=== PATIENT | female | born 1975 | race Caucasian/White ===

== ENCOUNTER 2016-10-22 14:09 | Emergency (ER) | payer OTHER ==
[~2016-10-22] VITALS: Ht 167.6 cm; Wt 74.4 kg
--- NOTE | 2016-10-22 16:15 | ED GI/GU/ABDOMINAL COMPLAINT ---
History of Present Illness General Chief Complaint: Abdominal Pain/Flank Pain Stated Complaint: abd pain Source: patient Exam Limitations: no limitations Vital Signs & Intake/Output Vital Signs & Intake/Output Vital Signs Date Time Temp Pulse Resp B/P Pulse O2 O2 Flow FiO2 Ox Delivery Rate 10/22 1820 98.2 90 18 118/71 98 Room Air 10/22 1625 97.6 102 18 121/84 98 Room Air 10/22 1600 98 Room Air 10/22 1510 98.6 120 18 121/84 99 Room Air Allergies Coded Allergies: Sulfa (Sulfonamide Antibiotics) (Intermediate, HIVES 10/22/16) morphine (Intermediate, HIVES 10/22/16) Uncoded Allergies: Med Allergies NONE Reconcile Medications Estrogenic Subst Conj (Premarin) 0.625 MG TABLET 1 TAB PO DAILY HORMONES ( Reported) Hydromorphone HCl (Dilaudid) 2 MG TABLET 1 TAB PO BIDP PRN PAIN Methylprednisolone. (Medrol) 4 MG TAB.DS.PK 1 DP PO AD COLITIS 6 on day 1 then reduce by one tablet daily until gone Triage Note: C/O LLQ ABDOMINAL PAIN SINCE LAST PM, WITH NAUSEA, BLOODY DIARRHEA. JUST FINISHED TRIAL OF REMICADE IV FOR ULCERATIVE COLITIS ON 10/18. Triage Nurses Notes Reviewed? yes ? n Is pt currently ? No Onset: Gradual Duration: worse persistent since (2 days) Timing: recent history Quality/Severity: cramping Severity Numbers: 6 Radiation: no radiation Activities at Onset: none Prior Abdominal Problems: similar symptoms Past Sexual History: Unobtainable at this time No Modifying Factors: none HPI: Patient is a 40-year-old female presenting to the emergency department with chief complaint of worsening diarrhea, left lower quadrant abdominal pain over the past 2 days. History of colitis. Feels like a flareup. She reports she is has not had a flare up in the past year to half to 2 years. She reports intermittent blood in her stool. Positive nausea but no vomiting. She just finished a trial of Remicade. Last infusion was a few days ago. She just moved to the area as her mother is in the area and she needs a new GI doctor to follow -up with. Denies any fevers or chills. No recent antibiotic use. (COURTNEY QUEZADA,YUSUF) Past History Travel History Traveled to [place] past 21 day No Medical History Any Pertinent Medical History? see below for history Gastrointestinal: ulcerative colitis Musculoskeletal: rheumatoid arthritis History of CDIFF: No Isolation History: Standard Surgical History Surgical History: non-contributory Psychosocial History What is your primary language Bangladeshi Tobacco Use: Quit >30 days ago ETOH Use: denies use Family History Hx Contributory? No (YUSUF PARADA) Review of Systems Review of Systems Constitutional: Reports: no symptoms. Comments Review of systems: See HPI, All other systems negative. Constitutional, no chills fever or weight loss HEENT: No visual changes no sore throat no congestion Cardiovascular: No chest pain ,palpitation , orthopnea or ankle swelling Skin, no jaundice no rashes Respiratory: No dyspnea cough sputum or hemoptysis GI: no vomiting : No dysuria No hematuria Muscle skeletal: no back pain, no neck pain, Neurologic: No numbness no confusion no baez Psych: Positive stress Heme/endocrine: No bruising no bleeding no polyuria or polydipsia Immunology: No splenectomy or history of AIDS (YUSUF PARADA) Physical Exam Physical Exam General Appearance: well developed/nourished, no apparent distress, alert, awake , comfortable Gastrointestinal: normal bowel sounds, soft, guarding, tenderness Comments: Well-developed well-nourished person in no acute distress HEENT: Pupils equally round and reactive to light and accommodation. Nose is atraumatic. Neck: Normal inspection Back: Nontender, no CVA tenderness. Full range of motion Cardiovascular: Regular rate and rhythms no murmurs rubs or gallops, normal JVP Respiratory: Chest nontender. No respiratory distress.breath sounds clear to auscultation bilaterally Abdomen: Soft, tender to palpation in the left lower quadrant with mild guarding , no rebound tenderness, nondistended, no appreciable organomegaly. Normal bowel sounds. No ascites Rectal: Patient refused Extremity: No edema Neuro: Alert oriented x3 Skin: No appreciable rash on exposed skin, skin is warm and dry. Psych: Mood and affect is normal, memory and judgment is normal. Core Measures ACS in differential dx? No Severe Sepsis Present: No Septic Shock Present: No (YUSUF PARADA) Progress Differential Diagnosis: irritable bowel syndrome, ulcerative colitis, C. difficile, diverticulitis, dehydration, electrolyte abnormality Plan of Care: Orders Procedure Date/time Status Add-on Test (ER Only) 01/27 1653 Active HUMAN BETA HCG SCREEN 10/22 1640 Complete Add-on Test (ER Only) 10/22 1612 Active WESTERGREN SED RATE 10/22 1602 Complete C-REACTIVE PROTEIN 10/22 1602 Complete COMPREHENSIVE METABOLIC PANEL 10/22 1602 Complete LACTIC ACID 10/22 1601 Complete COMPREHENSIVE METABOLIC PANEL 10/22 1601 Complete CBC WITHOUT DIFFERENTIAL 10/22 1601 Complete Laboratory Tests 10/22/16 1901: Lactic Acid Cancelled 10/22/16 1640: Anion Gap 10, Estimated GFR > 60, BUN/Creatinine Ratio 18.6, Glucose 91, Lactic Acid 2.2 H, Calcium 9.0, Total Bilirubin 0.4, AST 19, ALT 31, Alkaline Phosphatase 93, C-Reactive Prot, Quant < 0.5, Total Protein 7.0, Albumin 4.2, Globulin 2.8, Albumin/Globulin Ratio 1.5, Total Beta HCG NEGATIVE 10/22/16 1602: CBC w Diff NO MAN DIFF REQ, RBC 4.94, MCV 82.5, MCH 27.2, RDW 18.0 H, MPV 8.4, Gran % 73.4, Lymphocytes % 17.1 L, Monocytes % 8.1, Eosinophils % 1.0, Basophils % 0.4, Absolute Granulocytes 8.4 H, Absolute Lymphocytes 2.0, Absolute Monocytes 0.9 H, Absolute Eosinophils 0.1, Absolute Basophils 0, PUBS MCHC 33.0, ESR Westergren 23 H Initial ED EKG: none Comments: Patient medicated with Solu-Medrol, Dilaudid and fluids. She has tenderness in the left lower quadrant. Refused rectal exam. She also refused CT scan. She was informed of all lab results. She'll follow up with GI. Given Dr. Mcdonald' s contact information. Started on steroids and Dilaudid for the weekend. She was educated on signs and symptoms to return. (COURTNEY QUEZADA,YUSUF) Departure Departure Time of Disposition: 2012 Disposition: HOME OR SELF CARE Condition: Stable Clinical Impression Primary Impression: Abdominal pain Qualifiers: Abdominal location: generalized Qualified Code: R10.84 - Generalized abdominal pain Referrals: PATIENT HAS NO PRIMARY CARE DR (PCP/Family) PAUL CHAVEZ,SUMMER Timmons Additional Instructions: Follow-up with GI on Tuesday call to make an appointment. Take Dilaudid as prescribed for pain. Take steroids as prescribed as well. Return if he develop any worsening pain fevers or concerns. Departure Forms: Customer Survey D/C INS-APPENDICITIS EXCLUSION General Discharge Information Prescriptions: Current Visit Scripts Methylprednisolone. (Medrol) 1 DP PO AD #1 DP 6 on day 1 then reduce by one tablet daily until gone Hydromorphone HCl (Dilaudid) 1 TAB PO BIDP PRN PAIN #10 TAB (YUSUF PARADA) PA/BURLESQUE DANCER Co-Sign Statement Statement: ED Attending supervision documentation- [] I saw and evaluated the patient. I have also reviewed all the pertinent lab results and diagnostic results. I agree with the findings and the plan of care as documented in the PA's/BURLESQUE DANCER's documentation. [X] I have reviewed the ED Record and agree with the PA's/BURLESQUE DANCER's documentation. [] Additions or exceptions (if any) to the PAs/BURLESQUE DANCER's note and plan are summarized below: [] (HEMA KAISER DO
[2016-10-22 16:16] LABS: ABSOLUTE BASOPHIL COUNT 0 /CUMM (0.0-0.2); ABSOLUTE EOSINOPHIL COUNT 0.1 /CUMM (0.0-0.7); ABSOLUTE GRANULOCYTE CT 8.4 /CUMM (1.4-6.5); ABSOLUTE MONOCYTE COUNT 0.9 /CUMM (0.10-0.60); BASOPHIL % 0.4 % (0.0-2.0); GRANULOCYTE % 73.4 % (42.2-75.2); HEMATOCRIT 40.7 % (37-47); MEAN CORPUSCULAR HGB 27.2 PG (27.0-31.0); MEAN CORPUSCULAR VOLUME 82.5 FL (81.0-99.0); MEAN PLATELET VOLUME 8.4 FL (7.4-10.4); PLATELET COUNT 361 /CUMM (130-400); RED BLOOD CELL CT 4.94 /CUMM (4.20-5.40); WHITE BLOOD CELL COUNT 11.5 /CUMM (4.8-10.8)
[2016-10-22 18:20] VITALS: BP 118/71
[2016-10-22] MEDS ORDERED: PREMARIN0.625 M1 PO (18:20)
[2016-10-22] MEDS ORDERED: DILAUDID2 M1 PO (20:17)
[2016-10-22] MEDS ORDERED: MEDROL4 M2 PO (20:17)
== END 2016-10-22 20:32 ==
LOC: ERH 14:09
PROVIDERS: Emergency Medicine
DX: R10.32 Left lower quadrant pain (principal); R19.7 Diarrhea, unspecified
CPT/HCPCS: 96361; 96374; 96375; 96376; J2405

== ENCOUNTER 2017-03-29 14:51 | Emergency (ER) | payer SELFPAY ==
[~2017-03-29] VITALS: Ht 167.6 cm; Wt 74.4 kg
[~2017-03-29 14:51] MED LIST: DILAUDID2 M1 PO; MEDROL4 M2 PO; PREMARIN0.625 M1 PO
[2017-03-29 14:56] VITALS: BP 116/76
--- NOTE | 2017-03-29 15:08 | ED GI/GU/ABDOMINAL COMPLAINT ---
History of Present Illness General Chief Complaint: Abdominal Pain/Flank Pain Stated Complaint: ABD PAIN Source: patient, old records Exam Limitations: no limitations Vital Signs & Intake/Output Vital Signs & Intake/Output Vital Signs Date Time Temp Pulse Resp B/P B/P Pulse O2 O2 Flow FiO2 Mean Ox Delivery Rate 03/29 1740 90 16 98 Room Air 03/29 1456 97.0 111 20 116/76 98 Room Air ED Intake and Output 03/30 0000 03/29 1200 Intake Total 1000 Output Total Balance 1000 Intake, IV 1000 Patient 164 lb Weight Weight Reported by Patient Measurement Method Allergies Coded Allergies: Sulfa (Sulfonamide Antibiotics) (Intermediate, HIVES 10/22/16) morphine (Intermediate, HIVES 10/22/16) Reconcile Medications Estrogenic Subst Conj (Premarin) 0.625 MG TABLET 1 TAB PO DAILY HORMONES ( Reported) Hydromorphone HCl (Dilaudid) 2 MG TABLET 1 TAB PO BIDP PRN PAIN Methylprednisolone. (Medrol) 4 MG TAB.DS.PK 1 DP PO AD COLITIS 6 on day 1 then reduce by one tablet daily until gone Metronidazole (Flagyl) 500 MG TABLET 1 TAB PO TID CDIFF Oxycodone HCl/Acetaminophen (Percocet 5-325 MG Tablet) 5 MG-325 MG TABLET 1 TAB PO BID PRN PAIN Triage Note: PT TO ED C/O ABD PAIN,NAUSEA,DIARRHEA WITH BLOOD IN IT. H/O COLITIS, JUST FINISHED TRIAL DOSE OF REMICADE. DENIES VOMITING. STATES IT FEELS LIKE A COLITIS FLARE UP. Triage Nurses Notes Reviewed? yes LMP (ages 10-50): unknown ? N Is pt currently ? No Onset: Abrupt Duration: minute(s): (1), day(s):, constant, continues in ED, getting worse Timing: recent history Quality/Severity: cramping, moderate, sharpness Severity Numbers: 8 Location: left lower quadrant Radiation: no radiation Activities at Onset: none Prior Abdominal Problems: similar symptoms Sexually Active: Yes Last Time You Were Sexual: less than 2 months ago No Modifying Factors: none Modifying Factors: Worsens With: movement, palpation. Associated Symptoms: abdominal pain, diarrhea, nausea/vomiting HPI: 41-year-old female with past medical history of rheumatoid arthritis and ulcerative colitis presents complaining of abdominal pain, nausea, vomiting and bloody diarrhea. Patient reports symptoms started yesterday and gradually been worsening. Pain is located in the left lower quadrant of the abdomen and does not radiate. She reports pain as cramping pain that is intermittently sharp. She rates pain as a 8 out of 10 at does not radiate. Patient states that she feels as though this pain is similar to previous also of colitis as she has had in the past. Patient is currently not taking any medication for ulcerative colitis. Recently finished a trial of Remicade 2 or 3 weeks ago. Patient additionally reports having been diagnosed with C. difficile in the past. No recent antibiotic use, sick contacts recently travel, fevers, back pain, urinary symptoms, vaginal discharge. She is not taking any medicine for the pain. No other associated symptoms. Patient has surgical history of hysterectomy. (ADI GAN PA-C) Past History Travel History Traveled to [place] past 21 day No Medical History Any Pertinent Medical History? see below for history Gastrointestinal: ulcerative colitis Musculoskeletal: rheumatoid arthritis History of CDIFF: No Surgical History Surgical History: non-contributory Psychosocial History What is your primary language Albanian Tobacco Use: Quit >30 days ago ETOH Use: denies use Illicit Drug Use: denies illicit drug use Family History Hx Contributory? Yes (ADI GAN PA-C) Review of Systems Review of Systems Constitutional: Reports: no symptoms. EENTM: Reports: no symptoms. Respiratory: Reports: no symptoms. Cardiovascular: Reports: no symptoms. GI: Reports: see HPI, abdominal pain, diarrhea, nausea, bloody stool, vomiting. Genitourinary: Reports: no symptoms. Musculoskeletal: Reports: no symptoms. Skin: Reports: no symptoms. Neurological/Psychological: Reports: no symptoms. Hematologic/Endocrine: Reports: no symptoms. Immunologic/Allergic: Reports: no symptoms. All Other Systems: Reviewed and Negative (ADI GAN PA-C) Physical Exam Physical Exam General Appearance: well developed/nourished, alert, awake, anxious, moderate distress Head: atraumatic, normal appearance Eyes: Bilateral: normal appearance, PERRL, EOMI, normal inspection. Ears, Nose, Throat, Mouth: hearing grossly normal, moist mucous membrane, Tympanic normal Neck: normal inspection, supple, full range of motion, normal alignment Respiratory: normal breath sounds, chest non-tender, no respiratory distress, lungs clear Cardiovascular: regular rate/rhythm, normal peripheral pulses Peripheral Pulses: 2+ radial (R), 2+ radial (L), 2+ dorsalis pedis (R), 2+ dorsalis pedis (L) Gastrointestinal: normal bowel sounds, soft, no organomegaly, tenderness (llq) Rectal: pt refused Back: normal inspection, normal range of motion, no vertebral tenderness Extremities: normal range of motion, no ligament instability Neurologic/Psych: no motor/sensory deficits, awake, alert, oriented x 3, normal gait, normal mood/affect Skin: intact, normal color, warm/dry Core Measures ACS in differential dx? No Severe Sepsis Present: No Septic Shock Present: No (ELVIA PA-Edgardo,ADI) Progress Differential Diagnosis: appendicitis, bowel obstruction, colon cancer, diverticulitis, ectopic , endometritis, ischemic bowel, inflamm bowel dis, kidney stone, ovarian cyst, ovarian torsion, pancreatitis, PID/cervicitis, perforated viscous, SBO, UTI/pyelo Plan of Care: Orders Procedure Date/time Status CULTURE,STOOL 03/29 1553 Active C.DIFFICILE 03/29 1553 Active LIPASE 03/29 1521 Complete C-REACTIVE PROTEIN 03/29 1521 Complete COMPREHENSIVE METABOLIC PANEL 03/29 1521 Complete CBC WITHOUT DIFFERENTIAL 03/29 1521 Complete Laboratory Tests 03/29/17 1542: Anion Gap 10, Estimated GFR > 60, BUN/Creatinine Ratio 23.3, Glucose 95, Calcium 9.4, Total Bilirubin 0.3, AST 27, ALT 38, Alkaline Phosphatase 96, C-Reactive Prot, Quant 0.7, Total Protein 7.0, Albumin 4.3, Globulin 2.7, Albumin/Globulin Ratio 1.6, Lipase 52, CBC w Diff NO MAN DIFF REQ, RBC 4.39, MCV 81.9, MCH 26.5 L, RDW 16.8 H, MPV 8.0, Gran % 66.9, Lymphocytes % 20.3 L, Monocytes % 7.9, Eosinophils % 4.3, Basophils % 0.6, Absolute Granulocytes 3.9, Absolute Lymphocytes 1.2, Absolute Monocytes 0.5, Absolute Eosinophils 0.3, Absolute Basophils 0, PUBS MCHC 32.4 L 03/29/17 1521: Urine Color Cancelled, Urine Clarity Cancelled, Urine pH Cancelled, Ur Specific [place] Cancelled, Urine Protein Cancelled, Urine Ketones Cancelled, Urine Nitrite Cancelled, Urine Bilirubin Cancelled, Urine Urobilinogen Cancelled, Ur Leukocyte Esterase Cancelled, Ur Microscopic Cancelled, Urine Hemoglobin Cancelled, Urine Glucose Cancelled Microbiology 03/29 1623 STOOL: Clostridium difficile Toxin A & B - RECD 03/29 162 STOOL: Stool Culture - RECD 3:30 PM Patient seen and evaluated. Patient currently appears to be in significant pain holding the left lower quadrant of her abdomen. She'll be given a liter of normal saline along with IV Zofran and IV Dilaudid. She will have a CT scan of her abdomen and pelvis along with basic blood work, urine culture, c diff, and urinalysis. We'll follow up on results patient will continue to monitor. 4:15 PM: Patient reports that when she gave a stool sample she felt as though her stool smells like C. difficile. Additionally patient reports that her pain is discerned to come back after receiving 1 mg of IV Dilaudid. We'll give her another 1 mg IV. 5:45 PM: Patient is currently refusing CT scan and wants to leave. She feels that this is a C. difficile infection not related to anything else. Discussed with patient about possible risks of not having a CT scan and compliant with the workup including risk of perforation and abscess diverticulitis toxic megacolon and other acute abdomen. Patient understands the risks. AMA form signed. Patient will be discharged home with Flagyl to use for treatment of possible C. difficile infection. She also be given a small amount of Percocet use for pain. She'll be referred to Dr. Mcdonald in GI. Discussed all results of today's visit with patient. She is nontoxic. Discharge and agrees with the plan. Case discussed with Dr. Wheat he agrees with the plan. (ELVIA WHALEN,ADI) Initial ED EKG: none (ELVIA WHALEN,ADI) Departure Departure Disposition: LEFT AGAINST MEDICAL ADVICE Condition: Stable Clinical Impression Primary Impression: Abdominal pain Qualifiers: Abdominal location: left lower quadrant Qualified Code: R10.32 - Left lower quadrant pain Referrals: ROBBIE CHAVEZ,TERRELL Joya PATIENT HAS NO PRIMARY CARE DR (PCP/Family) Additional Instructions: Rest and plenty fluids. Take Flagyl as directed for the full course and take a probiotic to replace help the bacteria. Percocet can use as needed for severe pain only this may cause drowsiness. Make a follow-up on it with a GI doctor as soon as possible. Return to the emergency department with worsening pain, fevers, or any other concerns. You should make a follow-up with your primary care doctors to review results of today's visit. Please go over all results of today's visit with your primary care doctor. Contact your primary care doctor to let them know you were here in the emergency room. There may be nonspecific findings which may not be related to your visit today here in the emergency room but may require further evaluation and chronic monitoring by your primary care doctor. If you had a laceration today the chance of foreign body always remains. You should follow-up with your primary care doctor for recheck in 3-5 days for a wound check. If you had an x-ray done there is a chance that a fracture could have been missed on initial read and you should follow-up with your primary care doctor for repeat x-rays if symptoms persist. If your blood pressure was elevated here in the emergency room please have rechecked by her primary care doctor within the next 48 hours by your primary care doctor. If you were prescribed a narcotic here in the emergency room or any type of controlled substances you're not allowed to drive while taking this medication or operate any type of heavy machinery. Narcotics can make you feel lightheaded dizziness nausea and can cause constipation. You may need to diamond picker a stool softener. Thank you for choosing [facility] emergency room. Please return to the emergency room immediately if you have any other concerns worsening of symptoms. Departure Forms: Customer Survey General Discharge Information Prescriptions: Current Visit Scripts Metronidazole (Flagyl) 1 TAB PO TID #42 TAB Oxycodone HCl/Acetaminophen (Percocet 5-325 MG Tablet) 1 TAB PO BID PRN PAIN #6 TAB (ADI GAN PA-C) PA/METHOD CONSULTANT Co-Sign Statement Statement: ED Attending supervision documentation- [] I saw and evaluated the patient. I have also reviewed all the pertinent lab results and diagnostic results. I agree with the findings and the plan of care as documented in the PA's/METHOD CONSULTANT's documentation. [X] I have reviewed the ED Record and agree with the PA's/METHOD CONSULTANT's documentation. [] Additions or exceptions (if any) to the PAs/METHOD CONSULTANT's note and plan are summarized below: [] (MARCUS CHAVEZ,BALTAZAR Nieves)
[2017-03-29 15:53] LABS: ABSOLUTE BASOPHIL COUNT 0 /CUMM (0.0-0.2); ABSOLUTE EOSINOPHIL COUNT 0.3 /CUMM (0.0-0.7); ABSOLUTE GRANULOCYTE CT 3.9 /CUMM (1.4-6.5); ABSOLUTE LYMPH COUNT 1.2 /CUMM (1.2-3.4); ABSOLUTE MONOCYTE COUNT 0.5 /CUMM (0.10-0.60); BASOPHIL % 0.6 % (0.0-2.0); EOSINOPHIL % 4.3 % (0-5); GRANULOCYTE % 66.9 % (42.2-75.2); HEMATOCRIT 35.9 % (37-47); MEAN CORPUSCULAR HGB 26.5 PG (27.0-31.0); MEAN CORPUSCULAR HGB CONC 32.4 G/DL (33.0-37.0); MEAN CORPUSCULAR VOLUME 81.9 FL (81.0-99.0); PLATELET COUNT 315 /CUMM (130-400); RBC DISTRIBUTION WIDTH 16.8 % (11.5-14.5); RED BLOOD CELL CT 4.39 /CUMM (4.20-5.40); WHITE BLOOD CELL COUNT 5.9 /CUMM (4.8-10.8)
[2017-03-29] MEDS ORDERED: FLAGYL500 MG PO (17:46)
[2017-03-29] MEDS ORDERED: PERCOCET 5-3251 EACH PO (17:46)
== END 2017-03-29 17:55 | disposition left against medical advice (07) ==
LOC: ERH 14:51
PROVIDERS: Physician Assistant Medical
DX: R10.32 Left lower quadrant pain (principal)
CPT/HCPCS: 81025; 87045; 96374; 96375; 96376; J2405

== ENCOUNTER 2017-12-20 13:45 | Emergency (ER) | payer SELFPAY ==
[~2017-12-20] VITALS: Ht 167.6 cm; Wt 74.8 kg
[~2017-12-20 13:45] MED LIST changes: +FLAGYL500 MG PO; +PERCOCET 5-3251 EACH PO; +ZOFRAN4 M2 PO
[2017-12-20 16:39] LABS: ABSOLUTE BASOPHIL COUNT 0 /CUMM (0.0-0.2); ABSOLUTE EOSINOPHIL COUNT 0.1 /CUMM (0.0-0.7); ABSOLUTE GRANULOCYTE CT 3.9 /CUMM (1.4-6.5); ABSOLUTE LYMPH COUNT 1.9 /CUMM (1.2-3.4); ABSOLUTE MONOCYTE COUNT 0.6 /CUMM (0.10-0.60); BASOPHIL % 0.7 % (0.0-2.0); EOSINOPHIL % 1.5 % (0-5); GRANULOCYTE % 59.7 % (42.2-75.2); HEMATOCRIT 34.2 % (37-47); MEAN CORPUSCULAR HGB 25.3 PG (27.0-31.0); MEAN CORPUSCULAR HGB CONC 31.8 G/DL (33.0-37.0); MEAN CORPUSCULAR VOLUME 79.4 FL (81.0-99.0); MEAN PLATELET VOLUME 8.1 FL (7.4-10.4); PLATELET COUNT 437 /CUMM (130-400); RBC DISTRIBUTION WIDTH 15.9 % (11.5-14.5); RED BLOOD CELL CT 4.31 /CUMM (4.20-5.40); WHITE BLOOD CELL COUNT 6.5 /CUMM (4.8-10.8)
--- NOTE | 2017-12-20 17:30 | ED GI/GU/ABDOMINAL COMPLAINT ---
History of Present Illness General Chief Complaint: Nausea, Vomiting, Diarrhea Stated Complaint: PT IS HAVING ABDOMINAL PAIN,D Source: patient Exam Limitations: no limitations Vital Signs & Intake/Output Vital Signs & Intake/Output Vital Signs Date Time Temp Pulse Resp B/P B/P Pulse O2 O2 Flow FiO2 Mean Ox Delivery Rate 12/20 1921 97.0 83 16 109/70 100 Room Air ED Intake and Output 12/21 0000 12/20 1200 Intake Total Output Total Balance Number 1 Bowel Movements Patient 165 lb Weight Weight Reported by Patient Measurement Method Allergies Coded Allergies: Sulfa (Sulfonamide Antibiotics) (Intermediate, HIVES 10/22/16) morphine (Intermediate, HIVES 10/22/16) Reconcile Medications Estrogenic Subst Conj (Premarin) 0.625 MG TABLET 1 TAB PO DAILY HORMONES ( Reported) Hydrocodone/Acetaminophen (Avoca 5-325 Tablet) 5 MG-325 MG TABLET 1 TAB PO Q4- 6 PRN PRN PAIN Hydromorphone HCl (Dilaudid) 2 MG TABLET 1 TAB PO BIDP PRN PAIN Methylprednisolone. (Medrol) 4 MG TAB.DS.PK 1 DP PO AD COLITIS 6 on day 1 then reduce by one tablet daily until gone Metronidazole (Flagyl) 500 MG TABLET 1 TAB PO TID CDIFF Ondansetron (Zofran Odt) 4 MG TAB.RAPDIS 1 TAB SL TID PRN NAUSEA Ondansetron HCl (Zofran) 4 MG TABLET 1 TAB PO Q6-8P PRN NAUSEA Oxycodone HCl/Acetaminophen (Percocet 5-325 MG Tablet) 5 MG-325 MG TABLET 1 TAB PO BID PRN PAIN Oxycodone HCl/Acetaminophen (Percocet 5-325 MG Tablet) 5 MG-325 MG TABLET 1 TAB PO BID PRN PAIN Vancomycin HCl (Vancocin HCl) 125 MG CAPSULE 1 CAP PO Q6 C-DIFF Triage Note: PT TO ED WIT C/O ABD PAIN AND DIARRHEA WITH SOME BLOOD IN IT " IT HAS THAT C-DIFF SMELL TO IT, I JUST FINISHED REMICADE AND I HAD C-DIFF X 4". Triage Nurses Notes Reviewed? yes LMP (ages 10-50): unknown ? n Is pt currently ? No Onset: Gradual Duration: day(s): (2) Timing: recent history Quality/Severity: cramping Severity Numbers: 9 Location: generalized abdomen, left lower quadrant Radiation: no radiation Activities at Onset: none Prior Abdominal Problems: similar symptoms Past Sexual History: Unobtainable at this time No Modifying Factors: none Modifying Factors: Worsens With: palpation. Associated Symptoms: abdominal pain, diarrhea, fatigue, loss of appetite, nausea /vomiting HPI: 42-year-old female past medical history of inflammatory bowel disease presents for evaluation of abdominal pain diarrhea nausea. Patient reports symptoms started a few days ago and getting worse. The pain is located diffusely in the abdomen worsened left lower quadrant. Associated with watery diarrhea but sometimes has bright red blood in it. She rates the pain as an 8 or 9 out of 10. She is not taking any medicine currently. She states that she has been treated in the past with Remicade for UC BUT IS NOT CURRENTLY SEEING GI. Patient also reports that she thinks she may have C. difficile. She has had this in the past. She has not been on antibiotics recently. The last time she was treated she had oral vancomycin. She has been able tolerate fluids but is not eating food due to nausea. No chest pain shortness of breath fever recent travel sick contacts lower extremity edema or back pain. No urinary symptoms or vaginal discharge. (Blu Dorsey) Past History Travel History Traveled to [place] past 21 day No Medical History Any Pertinent Medical History? see below for history Neurological: NONE EENT: NONE Cardiovascular: NONE Respiratory: NONE Gastrointestinal: ulcerative colitis Hepatic: NONE Renal: NONE Musculoskeletal: rheumatoid arthritis Psychiatric: NONE Endocrine: NONE Blood Disorders: NONE Cancer(s): NONE CRYPTOLOGIC SUPPORT SPECIALIST/Reproductive: NONE History of CDIFF: No Surgical History Surgical History: appendectomy, cholecystectomy, hysterectomy Psychosocial History What is your primary language Jordanian Tobacco Use: Current Daily Use Daily Tobacco Use Amount/Type: =< 4 Cigarettes daily ETOH Use: denies use Illicit Drug Use: denies illicit drug use Family History Hx Contributory? No (Blu Dorsey) Review of Systems Review of Systems Constitutional: Reports: weakness. EENTM: Reports: no symptoms. Respiratory: Reports: no symptoms. Cardiovascular: Reports: no symptoms. GI: Reports: see HPI, abdominal pain, diarrhea, nausea, bloody stool, changes in stool, vomiting. Genitourinary: Reports: no symptoms. Musculoskeletal: Reports: no symptoms. Skin: Reports: no symptoms. Neurological/Psychological: Reports: no symptoms. Hematologic/Endocrine: Reports: no symptoms. Immunologic/Allergic: Reports: no symptoms. All Other Systems: Reviewed and Negative (Eduardo QUEZADA,Blu) Physical Exam Physical Exam General Appearance: well developed/nourished, no apparent distress, alert, awake , anxious Head: atraumatic, normal appearance Eyes: Bilateral: normal appearance, PERRL, EOMI. Ears, Nose, Throat, Mouth: hearing grossly normal, moist mucous membrane Neck: normal inspection, supple, full range of motion Respiratory: normal breath sounds, chest non-tender, no respiratory distress, lungs clear Cardiovascular: regular rate/rhythm, normal peripheral pulses Peripheral Pulses: 2+ radial (R), 2+ radial (L) Gastrointestinal: normal bowel sounds, soft, no organomegaly, tenderness ( DIFFUSE WORSE LLQ) Back: normal inspection, normal range of motion, no vertebral tenderness Extremities: normal range of motion Neurologic/Psych: no motor/sensory deficits, awake, alert, oriented x 3, normal gait Skin: intact, normal color, warm/dry Core Measures ACS in differential dx? No Sepsis Present: No Sepsis Focused Exam Completed? No (Blu Dorsey) Progress Differential Diagnosis: AMI, appendicitis, biliary colic, bowel obstruction, cholecystitis, gastritis, inflamm bowel dis, kidney stone, pancreatitis, PID/ cervicitis, peptic ulcer, PUD/GERD, SBO, UTI/pyelo Plan of Care: Orders Procedure Date/time Status Add-on Test (ER Only) 12/20 1716 Active C-REACTIVE PROTEIN 12/20 1630 Complete COMPREHENSIVE METABOLIC PANEL 12/20 1618 Complete CBC WITHOUT DIFFERENTIAL 12/20 1618 Complete C.DIFFICILE 12/20 1505 Active Laboratory Tests 12/20/17 1630: Anion Gap 18 H, Estimated GFR > 60, BUN/Creatinine Ratio 16.7, Glucose 100 H, Calcium 9.8, Total Bilirubin 0.4, AST 16, ALT 25, Alkaline Phosphatase 109, C- Reactive Prot, Quant < 0.5, Total Protein 8.0, Albumin 4.6, Globulin 3.4, Albumin/Globulin Ratio 1.4, CBC w Diff NO MAN DIFF REQ, RBC 4.31, MCV 79.4 L, MCH 25.3 L, MCHC 31.8 L, RDW 15.9 H, MPV 8.1, Gran % 59.7, Lymphocytes % 29.0 , Monocytes % 9.1, Eosinophils % 1.5, Basophils % 0.7, Absolute Granulocytes 3.9 , Absolute Lymphocytes 1.9, Absolute Monocytes 0.6, Absolute Eosinophils 0.1, Absolute Basophils 0 Microbiology 12/20 1500 STOOL: Clostridium difficile Toxin A & B - RECD Patient seen and evaluated. She has a history of ulcerative colitis is having diffuse abdominal pain and bloody diarrhea. She also has a history of C. difficile. Stool sent for C. difficile testing. Patient was medicated with IV fluids Zofran and morphine. Will check basic labs and a CT scan. Patient is still reporting pain after single dose of morphine and nausea. No vomiting here. She was given a second dose of morphine and IV Reglan and and Benadryl. Blood work does not show any acute findings. CT scan is within normal limits. Patient is feeling much better after second dose of morphine and Reglan and Benadryl morphine and fluids. She was able tolerate fluids here. Patient will be discharged home with a prescription for oral vancomycin for possible C. difficile infection. Zofran for nausea Avoca for severe pain. She will be referred to GI. INCrease fluids bland foods. Discussed return precautions. Patient appears well she agrees to the plan. Diagnostic Imaging: Viewed by Me: CT Scan. Discussed w/RAD: CT Scan. Radiology Impression: PATIENT: TEN GARCIA PRESENT AGE: 42 PATIENT ACCOUNT NO: [id number] : 73 LOCATION: [facility] ORDERING PHYSICIAN: Blu QUEZADA SERVICE DATE: 12/20/17 EXAM TYPE: CAT - CT ABD & PELVIS W IV CONTRAST EXAMINATION: CT ABDOMEN AND PELVIS WITH CONTRAST CLINICAL INFORMATION: Left lower quadrant pain and diarrhea with history of ulcerative colitis. COMPARISON: Abdominal CT 11/04/2017. TECHNIQUE: Multidetector volumetric imaging was performed of the abdomen and pelvis following IV administration of 95 mL of Optiray 320 intravenous contrast. Sagittal and coronal reformatted images were obtained on the technologist's workstation. FINDINGS: The lung bases are clear. The liver, spleen, adrenal glands, and pancreas are normal. The gallbladder is surgically absent. The kidneys exhibit symmetric nephrograms without evidence of hydronephrosis or nephrolithiasis. No focal renal lesions. No inflammatory changes adjacent to the large or the small bowel. The hepatic flexure is decompressed and not well assessed. There is moderate volume intracolonic stool and there is no bowel obstruction. There is sigmoid and descending colonic diverticulosis without evidence of acute diverticulitis. The appendix is normal. There is no free air and there is no intra-abdominal free fluid. No mesenteric or retroperitoneal adenopathy. The uterus is surgically absent. No pelvic adenopathy. No free fluid within the pelvis. There are no acute osseous abnormalities. Stable appearing small chronic upper endplate Schmorl's node at L2. No significant soft tissue abnormality. IMPRESSION: - No acute findings. No inflammatory changes adjacent to the large or the small bowel. The hepatic flexure is decompressed and not well assessed. There is moderate volume intracolonic stool and there is no bowel obstruction. - There is sigmoid and descending colonic diverticulosis without evidence of acute diverticulitis. - Cholecystectomy. DICTATED BY: Hugh Fitzgerald MD DATE/TIME DICTATED:12/20/171830 DIE TURNER:SEBASTIAN DATE/TIME TRANSCRIBED:1830 CONFIDENTIAL, DO NOT COPY WITHOUT APPROPRIATE AUTHORIZATION. < Electronically signed in Other Vendor System> SIGNED BY: Hugh Fitzgearld MD 12/20/171842 Initial ED EKG: none (Blu Dorsey) Departure Departure Disposition: HOME OR SELF CARE Condition: Stable Clinical Impression Primary Impression: Abdominal pain Qualifiers: Abdominal location: left lower quadrant Qualified Code: R10.32 - Left lower quadrant pain Secondary Impressions: Diarrhea Referrals: Livan CHAVEZ,Durga Joya Patient Has No Primary Care Dr (PCP/Family) Additional Instructions: Rest and drink plenty of fluids. Take antibiotics as directed for the full course. Tylenol ibuprofen for pain and Avoca for severe pain only this may cause drowsiness. Zofran for nausea. Follow-up with provided GI doctor as soon as possible. Monitor your symptoms return with any concerns. Departure Forms: Customer Survey General Discharge Information Prescriptions: Current Visit Scripts Vancomycin HCl (Vancocin HCl) 1 CAP PO Q6 #56 CAP Hydrocodone/Acetaminophen (Avoca 5-325 Tablet) 1 TAB PO Q4-6 PRN PRN PAIN #10 TAB Ondansetron (Zofran Odt) 1 TAB SL TID PRN NAUSEA #15 TAB (Blu Dorsey) PA/IT LEAD Co-Sign Statement Statement: ED Attending supervision documentation- [] I saw and evaluated the patient. I have also reviewed all the pertinent lab results and diagnostic results. I agree with the findings and the plan of care as documented in the PA's/IT LEAD's documentation. [X] I have reviewed the ED Record and agree with the PA's/IT LEAD's documentation. [] Additions or exceptions (if any) to the PAs/IT LEAD's note and plan are summarized below: [] (Hugh Omer DO)
--- NOTE | 2017-12-20 18:43 | CT SCAN REPORT ---
EXAMINATION: CT ABDOMEN AND PELVIS WITH CONTRAST CLINICAL INFORMATION: Left lower quadrant pain and diarrhea with history of ulcerative colitis. COMPARISON: Abdominal CT 11/04/2017. TECHNIQUE: Multidetector volumetric imaging was performed of the abdomen and pelvis following IV administration of 95 mL of Optiray 320 intravenous contrast. Sagittal and coronal reformatted images were obtained on the technologist's workstation. FINDINGS: The lung bases are clear. The liver, spleen, adrenal glands, and pancreas are normal. The gallbladder is surgically absent. The kidneys exhibit symmetric nephrograms without evidence of hydronephrosis or nephrolithiasis. No focal renal lesions. No inflammatory changes adjacent to the large or the small bowel. The hepatic flexure is decompressed and not well assessed. There is moderate volume intracolonic stool and there is no bowel obstruction. There is sigmoid and descending colonic diverticulosis without evidence of acute diverticulitis. The appendix is normal. There is no free air and there is no intra-abdominal free fluid. No mesenteric or retroperitoneal adenopathy. The uterus is surgically absent. No pelvic adenopathy. No free fluid within the pelvis. There are no acute osseous abnormalities. Stable appearing small chronic upper endplate Schmorl's node at L2. No significant soft tissue abnormality. IMPRESSION: - No acute findings. No inflammatory changes adjacent to the large or the small bowel. The hepatic flexure is decompressed and not well assessed. There is moderate volume intracolonic stool and there is no bowel obstruction. - There is sigmoid and descending colonic diverticulosis without evidence of acute diverticulitis. - Cholecystectomy.
[2017-12-20 19:22] VITALS: BP 109/70
[2017-12-20] MEDS ORDERED: ZOFRAN ODT4 M1 SL (19:47)
[2017-12-20] MEDS ORDERED: VANCOCIN HCL125 MG PO (19:47)
[2017-12-20] MEDS ORDERED: NORCO 5-325 TA1 EACH PO (19:47)
== END 2017-12-20 20:01 ==
LOC: ERH 13:45
PROVIDERS: Physician Assistant Medical
DX: R19.7 Diarrhea, unspecified (principal); R10.84 Generalized abdominal pain
CPT/HCPCS: 74177; 96374; 96375; 96376; J1200; J2405; J2765